=== PATIENT | female | born 1960 | race African-American/Black ===

== ENCOUNTER 2020-09-27 15:53 | Inpatient (IN) | payer OTHER ==
[2020-09-27] MEDS ORDERED: MAG HYDROX/AL HYDROX/SIMETH 30 ML UNIT-DOSE CUP PO PRN (16:51)
[2020-09-27] MEDS ORDERED: ACETAMINOPHEN 325 MG TABLET (FP) PO PRN ×2 (16:51)
[2020-09-27] MEDS ORDERED: MENTHOL/PHENOL 1 EACH UD MM PRN (16:51)
[2020-09-27] MEDS ORDERED: NICOTINE POLACRILEX 2 MG GUM BUC PRN (16:51)
[2020-09-27] MEDS ORDERED: MAGNESIUM CITRATE 300 ML BOTTLE PO PRN (16:51)
[2020-09-27] MEDS ORDERED: IBUPROFEN 400 MG TABLET (FP) PO PRN (16:51)
[2020-09-27] MEDS ORDERED: BISMUTH SUBSALICYLATE 524 MG/30 ML UD PO PRN (16:51)
[2020-09-27] MEDS ORDERED: chlordiazePOXIDE HCL 25 MG CAPSULE PO PRN (16:51)
[2020-09-27] MEDS ORDERED: ONDANSETRON *ODT* 4 MG TABLET SL PRN (16:51)
[2020-09-27] MEDS ORDERED: MAGNESIUM HYDROX 2400MG/30ML ORAL SUSPENSION 30 ML CUP PO PRN (16:51)
[2020-09-27 17:07] VITALS: BMI 21.3
[2020-09-27] MEDS ORDERED: ALBUTEROL SO4 HFA INHALER IH PRN (18:02)
[2020-09-27] MEDS: hydrOXYzine PAMOATE 25 MG CAPSULE (FP) PO SCH ×2 (18:42→22:32)
[2020-09-27] MEDS: NICOTINE 21 MG/24 HOURS TOPICAL PATCH TD SCH (19:04)
[2020-09-27] MEDS: chlordiazePOXIDE HCL 25 MG CAPSULE PO SCH (22:31)
[2020-09-27] MEDS: THIAMINE HCL 100 MG TABLET (FP) PO SCH (22:32)
[2020-09-27] MEDS: MELATONIN 5 MG TABLETS PO SCH (22:32)
[2020-09-28] MEDS: chlordiazePOXIDE HCL 25 MG CAPSULE PO SCH ×2 (06:15→10:23)
[2020-09-28] MEDS: hydrOXYzine PAMOATE 25 MG CAPSULE (FP) PO SCH ×5 (06:15→22:39)
[2020-09-28] MEDS: LISINOPRIL 20 MG TABLET PO SCH (10:22)
[2020-09-28] MEDS: PRENATAL VITAMINS W/ FOLIC ACID TABLET (FP) PO SCH (10:22)
[2020-09-28] MEDS: NICOTINE 21 MG/24 HOURS TOPICAL PATCH TD SCH (10:22)
[2020-09-28] MEDS: SELENIUM SULFIDE 2.5% LOTION 4 OZ. TP SCH (10:24)
[2020-09-28 10:57] LABS: CALCIUM 9.8 mg/dL (8.5-10.1)
[2020-09-28 10:58] LABS: ALBUMIN 3.2 g/dl (3.4-5.0); BLOOD UREA NITROGEN 4.9 mg/dL (7-18)
[2020-09-28 11:01] LABS: CREATININE 0.7 mg/dL (0.55-1.3)
[2020-09-28 11:02] LABS: TOT PROT 7.2 g/dl (6.4-8.2)
[2020-09-28 11:04] LABS: BILIRUBIN,TOTAL 3.1 mg/dL (0.2-1)
[2020-09-28 11:11] LABS: HEMATOCRIT 41.7 % (32.4-45.2); HEMOGLOBIN 14.4 GM/dL (10.7-15.3); MCH 34.7 pg (25.7-33.7); MCHC 34.6 g/dl (32.0-36.0); MEAN CELL VOLUME 100.5 fl (80-96); MEAN PLT VOLUME 8.8 fl (7.5-11.1); PLATELET COUNT 210 K/MM3 (134-434); RBC 4.15 M/mm3 (3.60-5.2); RDW 17.3 % (11.6-15.6); WHITE BLOOD COUNT 4.7 K/mm3 (4.0-10.0)
[2020-09-28] MEDS ORDERED: LORazepam 1 MG TABLET PO PRN (14:14)
[2020-09-28] MEDS: LORazepam 2 MG TABLET PO SCH ×2 (17:25→22:40)
[2020-09-28] MEDS: METHOCARBAMOL 500 MG TABLET PO PRN (19:16)
[2020-09-28] MEDS: MIRTAZAPINE 15 MG TABLET (FP) PO SCH (22:39)
[2020-09-28] MEDS: MELATONIN 5 MG TABLETS PO SCH (22:39)
[2020-09-28] MEDS: THIAMINE HCL 100 MG TABLET (FP) PO SCH (22:39)
[2020-09-29] MEDS ORDERED: chlordiazePOXIDE HCL 25 MG CAPSULE PO SCH (05:00)
[2020-09-29] MEDS: LORazepam 2 MG TABLET PO SCH ×4 (06:36→22:50)
[2020-09-29] MEDS: hydrOXYzine PAMOATE 25 MG CAPSULE (FP) PO SCH ×2 (06:37→10:32)
[2020-09-29] MEDS: NICOTINE 21 MG/24 HOURS TOPICAL PATCH TD SCH (10:32)
[2020-09-29] MEDS: LISINOPRIL 20 MG TABLET PO SCH (10:32)
[2020-09-29] MEDS: SELENIUM SULFIDE 2.5% LOTION 4 OZ. TP SCH (10:32)
[2020-09-29] MEDS: PRENATAL VITAMINS W/ FOLIC ACID TABLET (FP) PO SCH (10:32)
[2020-09-29] MEDS ORDERED: MASKS NR ONE (10:50)
[2020-09-29 11:33] LABS: CALCIUM 9.3 mg/dL (8.5-10.1)
[2020-09-29 11:34] LABS: ALBUMIN 2.8 g/dl (3.4-5.0); BLOOD UREA NITROGEN 8.1 mg/dL (7-18)
[2020-09-29 11:37] LABS: CREATININE 0.6 mg/dL (0.55-1.3)
[2020-09-29 11:38] LABS: BILIRUBIN,TOTAL 2.6 mg/dL (0.2-1); TOT PROT 6.4 g/dl (6.4-8.2)
[2020-09-29 11:45] LABS: INR 1.08 (0.83-1.09)
[2020-09-29] MEDS ORDERED: hydrOXYzine PAMOATE 25 MG CAPSULE (FP) PO PRN (13:41)
[2020-09-29] MEDS: LACTULOSE 20 GM/30 ML UDC (FOR ORAL USE ONLY) PO SCH ×3 (14:15→22:51)
[2020-09-29] MEDS: METHOCARBAMOL 500 MG TABLET PO PRN (14:17)
[2020-09-29] MEDS: MELATONIN 5 MG TABLETS PO SCH (22:51)
[2020-09-29] MEDS: MIRTAZAPINE 15 MG TABLET (FP) PO SCH (22:51)
[2020-09-29] MEDS: THIAMINE HCL 100 MG TABLET (FP) PO SCH (22:51)
[2020-09-30] MEDS ORDERED: chlordiazePOXIDE HCL 10 MG CAPSULE PO PRN
[2020-09-30] MEDS ORDERED: chlordiazePOXIDE HCL 10 MG CAPSULE PO SCH (05:00)
[2020-09-30] MEDS: LORazepam 1 MG TABLET PO SCH ×4 (06:08→22:36)
[2020-09-30] MEDS: PRENATAL VITAMINS W/ FOLIC ACID TABLET (FP) PO SCH (10:42)
[2020-09-30] MEDS: LACTULOSE 20 GM/30 ML UDC (FOR ORAL USE ONLY) PO SCH ×4 (10:42→22:38)
[2020-09-30] MEDS: LISINOPRIL 20 MG TABLET PO SCH (10:42)
[2020-09-30] MEDS: NICOTINE 21 MG/24 HOURS TOPICAL PATCH TD SCH (10:42)
[2020-09-30] MEDS: SELENIUM SULFIDE 2.5% LOTION 4 OZ. TP SCH (10:43)
[2020-09-30] MEDS: MIRTAZAPINE 15 MG TABLET (FP) PO SCH (22:36)
[2020-09-30] MEDS: THIAMINE HCL 100 MG TABLET (FP) PO SCH (22:36)
[2020-09-30] MEDS: MELATONIN 5 MG TABLETS PO SCH (22:40)
[2020-10-01] MEDS ORDERED: LORazepam 0.5 MG TABLET PO PRN
[2020-10-01] MEDS ORDERED: chlordiazePOXIDE HCL 10 MG CAPSULE PO SCH (05:00)
[2020-10-01] MEDS: LORazepam 0.5 MG TABLET PO SCH ×4 (06:54→23:37)
[2020-10-01] MEDS: LACTULOSE 20 GM/30 ML UDC (FOR ORAL USE ONLY) PO SCH ×4 (10:20→23:34)
[2020-10-01] MEDS: LISINOPRIL 20 MG TABLET PO SCH (10:21)
[2020-10-01] MEDS: PRENATAL VITAMINS W/ FOLIC ACID TABLET (FP) PO SCH (10:21)
[2020-10-01] MEDS: NICOTINE 21 MG/24 HOURS TOPICAL PATCH TD SCH (10:21)
[2020-10-01] MEDS: SELENIUM SULFIDE 2.5% LOTION 4 OZ. TP SCH (10:22)
[2020-10-01 12:45] LABS: CALCIUM 9.7 mg/dL (8.5-10.1)
[2020-10-01 12:47] LABS: ALBUMIN 3.2 g/dl (3.4-5.0)
[2020-10-01 12:49] LABS: CREATININE 0.7 mg/dL (0.55-1.3)
[2020-10-01 12:50] LABS: BILIRUBIN,TOTAL 2.5 mg/dL (0.2-1); TOT PROT 7.2 g/dl (6.4-8.2)
[2020-10-01 14:26] LABS: INR 0.98 (0.83-1.09); PROTHROMBIN TIME (PATIENT) 12.1 SEC (9.7-13.0)
[2020-10-01] MEDS: MELATONIN 5 MG TABLETS PO SCH (23:34)
[2020-10-01] MEDS: MIRTAZAPINE 15 MG TABLET (FP) PO SCH (23:35)
[2020-10-01] MEDS: THIAMINE HCL 100 MG TABLET (FP) PO SCH (23:36)
[2020-10-02] MEDS ORDERED: LORazepam 0.5 MG TABLET PO ONE (05:00)
[2020-10-02] MEDS ORDERED: chlordiazePOXIDE HCL 10 MG CAPSULE PO ONE (05:00)
[2020-10-02 09:22] VITALS: BP 121/85; PULSE 123; TEMP 97.5
[2020-10-02] MEDS: PRENATAL VITAMINS W/ FOLIC ACID TABLET (FP) PO SCH (09:38)
[2020-10-02] MEDS: LISINOPRIL 20 MG TABLET PO SCH (09:38)
[2020-10-02] MEDS: NICOTINE 21 MG/24 HOURS TOPICAL PATCH TD SCH (09:38)
[2020-10-02] MEDS: LACTULOSE 20 GM/30 ML UDC (FOR ORAL USE ONLY) PO SCH (09:39)
[2020-10-02] MEDS: SELENIUM SULFIDE 2.5% LOTION 4 OZ. TP SCH (09:40)
== END 2020-10-02 10:20 | disposition home or self-care (01) | DRG 775 ==
LOC: YASAS 15:53 → Y6N 17:41
PROVIDERS: ADMIT Allergy & Immunology; ATTEND Allergy & Immunology
PROC: HZ2ZZZZ Detoxification Services for Substance Abuse Treatment (ICD-10-PCS; principal; 2020-09-27)
DX: F10.230 Alcohol dependence with withdrawal, uncomplicated (principal); F10.220 Alcohol dependence with intoxication, uncomplicated; F17.210 Nicotine dependence, cigarettes, uncomplicated; F20.9 Schizophrenia, unspecified; G47.00 Insomnia, unspecified; J44.9 Chronic obstructive pulmonary disease, unspecified; J40 Bronchitis, not specified as acute or chronic; I10 Essential (primary) hypertension; L21.0 Seborrhea capitis; R29.6 Repeated falls; R63.4 Abnormal weight loss; Z68.21 Body mass index [BMI] 21.0-21.9, adult; Z91.5 Personal history of self-harm; Z91.14 Patient's other noncompliance with medication regimen; Z88.6 Allergy status to analgesic agent; S09.8XXA Other specified injuries of head, initial encounter; W18.11XA Fall from or off toilet without subsequent striking against object, initial encounter; Y92.231 Patient bathroom in hospital as the place of occurrence of the external cause; Y93.89 Activity, other specified; Y99.8 Other external cause status
CPT/HCPCS: 36415; 70450-TC; 71045-TC-FY; 72125-TC; 72170-TC-FY; 80053; 82140; 82550; 82962; 84484; 85025; 85027; 85610; 86780; 87389; 93005; 93010; 99285-25; C9803; U0003

== ENCOUNTER 2020-09-30 04:33 | Emergency (ER) | payer OTHER ==
[2020-09-30 04:42] VITALS: BMI 24.2
[2020-09-30] MEDS ORDERED: chlordiazePOXIDE HCL 25 MG CAPSULE PO ONE (05:05)
[2020-09-30] MEDS ORDERED: chlordiazePOXIDE HCL 25 MG CAPSULE ONE (05:22)
[2020-09-30 06:25] LABS: BASO % 1.4 % (0-2.0); EOS % 2.2 % (0-4.5); HEMATOCRIT 39.7 % (32.4-45.2); HEMOGLOBIN 13.5 GM/dL (10.7-15.3); LYMPH % 26.4 % (8-40); MCH 34.8 pg (25.7-33.7); MCHC 33.9 g/dl (32.0-36.0); MEAN CELL VOLUME 102.7 fl (80-96); MEAN PLT VOLUME 9.1 fl (7.5-11.1); MONO % 9.2 % (3.8-10.2); NEUT % 60.8 % (42.8-82.8); PLATELET COUNT 180 K/MM3 (134-434); RBC 3.87 M/mm3 (3.60-5.2); RDW 17.3 % (11.6-15.6); WHITE BLOOD COUNT 5.1 K/mm3 (4.0-10.0)
[2020-09-30 06:27] LABS: CHLORIDE 106 mmol/L (98-107); POTASSIUM 4.9 mmol/L (3.5-5.1); SODIUM 139 mmol/L (136-145)
[2020-09-30 06:29] LABS: CALCIUM 9.7 mg/dL (8.5-10.1)
[2020-09-30 06:30] LABS: ANION GAP 6 MMOL/L (8-16); BLOOD UREA NITROGEN 9.9 mg/dL (7-18); CO2 28 mmol/L (21-32); GLUCOSE,RANDOM 102 mg/dL (74-106)
[2020-09-30 06:33] LABS: CREATININE 0.7 mg/dL (0.55-1.3); SGOT/AST 164 U/L (15-37); SGPT/ALT 46 U/L (13-61)
[2020-09-30 06:34] LABS: BILIRUBIN,TOTAL 2.9 mg/dL (0.2-1)
[2020-09-30 06:36] LABS: ALK PHOS 257 U/L (45-117)
[2020-09-30 06:52] VITALS: TEMP 97.8
[2020-09-30] MEDS ORDERED: amLODIPine BESYLATE 10 MG TABLET (FP) PO ONE (07:12)
[2020-09-30] MEDS ORDERED: amLODIPine BESYLATE 5 MG TABLET (FP) ONE (07:24)
[2020-09-30 10:36] VITALS: BP 133/88; PULSE 88
== END 2020-09-30 10:50 | disposition home or self-care (01) ==
LOC: JER 04:33
DX: R51.9 Headache, unspecified (principal); M25.552 Pain in left hip
CPT/HCPCS: 36415; 70450-TC; 71045-TC-FY; 72125-TC; 72170-TC-FY; 80053; 82550; 84484; 85025; 93005; 93010; 99285-25

== ENCOUNTER 2020-10-01 20:15 | Emergency (ER) | payer OTHER ==
[2020-10-01] MEDS ORDERED: ACETAMINOPHEN 325 MG TABLET (FP) PO ONE (20:54)
[2020-10-01] MEDS ORDERED: ACETAMINOPHEN 325 MG TABLET (FP) ONE (21:01)
[2020-10-01 22:19] VITALS: PULSE 95; BMI 27.4
[2020-10-02 00:30] VITALS: BP 135/107; TEMP 97.9
[2020-10-02] MEDS ORDERED: ACETAMINOPHEN 325 MG TABLET (FP) PO ONE (01:07)
[2020-10-02] MEDS ORDERED: ACETAMINOPHEN 325 MG TABLET (FP) ONE (01:37)
== END 2020-10-02 02:35 | disposition home or self-care (01) ==
LOC: JER 20:15
DX: S09.90XA Unspecified injury of head, initial encounter (principal)
CPT/HCPCS: 70450-TC; 72170-TC-FY; 82962; 99285-25

== ENCOUNTER 2020-10-21 11:27 | Inpatient (IN) | payer OTHER ==
[2020-10-21 12:21] VITALS: BMI 22.8
[2020-10-21] MEDS ORDERED: NICOTINE POLACRILEX 2 MG GUM BUC PRN (12:40)
[2020-10-21] MEDS ORDERED: ONDANSETRON *ODT* 4 MG TABLET SL PRN (12:40)
[2020-10-21] MEDS ORDERED: BISMUTH SUBSALICYLATE 524 MG/30 ML UD PO PRN (12:40)
[2020-10-21] MEDS ORDERED: MAGNESIUM HYDROX 2400MG/30ML ORAL SUSPENSION 30 ML CUP PO PRN (12:40)
[2020-10-21] MEDS ORDERED: MENTHOL/PHENOL 1 EACH UD MM PRN (12:40)
[2020-10-21] MEDS ORDERED: MAG HYDROX/AL HYDROX/SIMETH 30 ML UNIT-DOSE CUP PO PRN (12:40)
[2020-10-21] MEDS ORDERED: MAGNESIUM CITRATE 300 ML BOTTLE PO PRN (12:40)
[2020-10-21] MEDS ORDERED: chlordiazePOXIDE HCL 25 MG CAPSULE PO PRN (12:40)
[2020-10-21] MEDS ORDERED: ACETAMINOPHEN 325 MG TABLET (FP) PO PRN ×2 (12:40)
[2020-10-21] MEDS ORDERED: ALBUTEROL SO4 HFA INHALER IH PRN (12:46)
[2020-10-21] MEDS: NICOTINE 21 MG/24 HOURS TOPICAL PATCH TD SCH (13:44)
[2020-10-21] MEDS: PRENATAL VITAMINS W/ FOLIC ACID TABLET (FP) PO SCH (13:44)
[2020-10-21] MEDS: chlordiazePOXIDE HCL 25 MG CAPSULE PO SCH ×3 (13:44→22:26)
[2020-10-21] MEDS: hydrOXYzine PAMOATE 25 MG CAPSULE (FP) PO SCH ×3 (13:44→22:26)
[2020-10-21 17:26] LABS: POTASSIUM 4.2 mmol/L (3.5-5.1)
[2020-10-21 17:27] LABS: HEMATOCRIT 37.1 % (32.4-45.2); HEMOGLOBIN 12.4 GM/dL (10.7-15.3); MCH 34.6 pg (25.7-33.7); MCHC 33.4 g/dl (32.0-36.0); MEAN CELL VOLUME 103.4 fl (80-96); MEAN PLT VOLUME 8.6 fl (7.5-11.1); PLATELET COUNT 278 K/MM3 (134-434); RBC 3.59 M/mm3 (3.60-5.2); RDW 16.6 % (11.6-15.6); WHITE BLOOD COUNT 5.5 K/mm3 (4.0-10.0)
[2020-10-21 17:31] LABS: CALCIUM 9.6 mg/dL (8.5-10.1)
[2020-10-21 17:32] LABS: ALBUMIN 3.3 g/dl (3.4-5.0); BLOOD UREA NITROGEN 5.9 mg/dL (7-18)
[2020-10-21 17:35] LABS: CREATININE 0.6 mg/dL (0.55-1.3)
[2020-10-21 17:38] LABS: BILIRUBIN,TOTAL 0.6 mg/dL (0.2-1); TOT PROT 7.1 g/dl (6.4-8.2)
[2020-10-21] MEDS: THIAMINE HCL 100 MG TABLET (FP) PO SCH (22:26)
[2020-10-21] MEDS: MIRTAZAPINE 15 MG TABLET (FP) PO SCH (22:26)
[2020-10-21] MEDS: MELATONIN 5 MG TABLETS PO SCH (22:31)
[2020-10-22] MEDS: chlordiazePOXIDE HCL 25 MG CAPSULE PO SCH ×4 (05:58→22:30)
[2020-10-22] MEDS: hydrOXYzine PAMOATE 25 MG CAPSULE (FP) PO SCH ×5 (05:58→22:29)
[2020-10-22] MEDS: LISINOPRIL 20 MG TABLET PO SCH (10:39)
[2020-10-22] MEDS: NICOTINE 21 MG/24 HOURS TOPICAL PATCH TD SCH (10:39)
[2020-10-22] MEDS: PRENATAL VITAMINS W/ FOLIC ACID TABLET (FP) PO SCH (10:39)
[2020-10-22] MEDS: METHOCARBAMOL 500 MG TABLET PO PRN (11:36)
[2020-10-22] MEDS: IBUPROFEN 400 MG TABLET (FP) PO PRN (11:37)
[2020-10-22] MEDS: MIRTAZAPINE 15 MG TABLET (FP) PO SCH (22:29)
[2020-10-22] MEDS: THIAMINE HCL 100 MG TABLET (FP) PO SCH (22:29)
[2020-10-22] MEDS: MELATONIN 5 MG TABLETS PO SCH (22:30)
[2020-10-23] MEDS: hydrOXYzine PAMOATE 25 MG CAPSULE (FP) PO SCH ×5 (05:47→22:35)
[2020-10-23] MEDS: chlordiazePOXIDE HCL 25 MG CAPSULE PO SCH ×4 (05:47→22:35)
[2020-10-23] MEDS: METHOCARBAMOL 500 MG TABLET PO PRN (09:16)
[2020-10-23] MEDS: IBUPROFEN 400 MG TABLET (FP) PO PRN (09:17)
[2020-10-23] MEDS: PRENATAL VITAMINS W/ FOLIC ACID TABLET (FP) PO SCH (10:34)
[2020-10-23] MEDS: LISINOPRIL 20 MG TABLET PO SCH (10:34)
[2020-10-23] MEDS: NICOTINE 21 MG/24 HOURS TOPICAL PATCH TD SCH (10:35)
[2020-10-23 11:53] LABS: INR 0.97 (0.83-1.09); PROTHROMBIN TIME (PATIENT) 11.9 SEC (9.7-13.0)
[2020-10-23 11:55] LABS: POTASSIUM 4.5 mmol/L (3.5-5.1)
[2020-10-23 12:26] LABS: CALCIUM 9.6 mg/dL (8.5-10.1)
[2020-10-23 12:27] LABS: ALBUMIN 2.9 g/dl (3.4-5.0)
[2020-10-23 12:31] LABS: BILIRUBIN,TOTAL 1.1 mg/dL (0.2-1); CREATININE 0.5 mg/dL (0.55-1.3)
[2020-10-23 12:32] LABS: TOT PROT 6.2 g/dl (6.4-8.2)
[2020-10-23] MEDS: MIRTAZAPINE 15 MG TABLET (FP) PO SCH (22:34)
[2020-10-23] MEDS: THIAMINE HCL 100 MG TABLET (FP) PO SCH (22:34)
[2020-10-23] MEDS: MELATONIN 5 MG TABLETS PO SCH (23:35)
[2020-10-24] MEDS ORDERED: chlordiazePOXIDE HCL 10 MG CAPSULE PO PRN
[2020-10-24] MEDS: hydrOXYzine PAMOATE 25 MG CAPSULE (FP) PO SCH ×5 (06:50→22:48)
[2020-10-24] MEDS: chlordiazePOXIDE HCL 10 MG CAPSULE PO SCH ×4 (06:50→22:48)
[2020-10-24] MEDS: PRENATAL VITAMINS W/ FOLIC ACID TABLET (FP) PO SCH (10:05)
[2020-10-24] MEDS: NICOTINE 21 MG/24 HOURS TOPICAL PATCH TD SCH (10:05)
[2020-10-24] MEDS: LISINOPRIL 20 MG TABLET PO SCH (10:06)
[2020-10-24] MEDS ORDERED: LIDOCAINE VISCOUS 2% ORAL/TOP 20 ML UNIT-DOSE CUP MM PRN (13:25)
[2020-10-24] MEDS: THIAMINE HCL 100 MG TABLET (FP) PO SCH (22:48)
[2020-10-24] MEDS: MIRTAZAPINE 15 MG TABLET (FP) PO SCH (22:48)
[2020-10-24] MEDS: MELATONIN 5 MG TABLETS PO SCH (22:49)
[2020-10-25] MEDS: chlordiazePOXIDE HCL 10 MG CAPSULE PO SCH ×2 (06:51→17:59)
[2020-10-25] MEDS: hydrOXYzine PAMOATE 25 MG CAPSULE (FP) PO SCH ×5 (06:52→21:45)
[2020-10-25] MEDS: NICOTINE 21 MG/24 HOURS TOPICAL PATCH TD SCH (10:20)
[2020-10-25] MEDS: LISINOPRIL 20 MG TABLET PO SCH (10:21)
[2020-10-25] MEDS: PRENATAL VITAMINS W/ FOLIC ACID TABLET (FP) PO SCH (10:21)
[2020-10-25] MEDS: THIAMINE HCL 100 MG TABLET (FP) PO SCH (21:44)
[2020-10-25] MEDS: MELATONIN 5 MG TABLETS PO SCH (21:45)
[2020-10-25] MEDS: MIRTAZAPINE 15 MG TABLET (FP) PO SCH (21:45)
[2020-10-26] MEDS ORDERED: chlordiazePOXIDE HCL 10 MG CAPSULE PO ONE (05:00)
[2020-10-26] MEDS: hydrOXYzine PAMOATE 25 MG CAPSULE (FP) PO SCH ×2 (06:37→10:19)
[2020-10-26] MEDS: NICOTINE 21 MG/24 HOURS TOPICAL PATCH TD SCH (10:18)
[2020-10-26] MEDS: LISINOPRIL 20 MG TABLET PO SCH (10:19)
[2020-10-26] MEDS: PRENATAL VITAMINS W/ FOLIC ACID TABLET (FP) PO SCH (10:19)
[2020-10-26 11:45] VITALS: BP 134/98; PULSE 115; TEMP 97.3
== END 2020-10-26 12:12 | disposition other institution (70) | DRG 775 ==
LOC: YASAS 11:27 → Y6N 12:38
PROVIDERS: ADMIT Allergy & Immunology; ATTEND Allergy & Immunology
PROC: HZ2ZZZZ Detoxification Services for Substance Abuse Treatment (ICD-10-PCS; principal; 2020-10-21)
DX: F10.230 Alcohol dependence with withdrawal, uncomplicated (principal); F17.210 Nicotine dependence, cigarettes, uncomplicated; F10.220 Alcohol dependence with intoxication, uncomplicated; F10.282 Alcohol dependence with alcohol-induced sleep disorder; F20.9 Schizophrenia, unspecified; F41.9 Anxiety disorder, unspecified; I10 Essential (primary) hypertension; J43.9 Emphysema, unspecified; J40 Bronchitis, not specified as acute or chronic; G47.00 Insomnia, unspecified; R74.01 Elevation of levels of liver transaminase levels; R74.8 Abnormal levels of other serum enzymes; R29.6 Repeated falls; R63.4 Abnormal weight loss; Z68.22 Body mass index [BMI] 22.0-22.9, adult; Z87.828 Personal history of other (healed) physical injury and trauma; Z88.6 Allergy status to analgesic agent; Z91.018 Allergy to other foods; Z56.0 Unemployment, unspecified
CPT/HCPCS: 36415; 80053; 81025; 82947; 85027; 85610; 86780; C9803; U0003

== ENCOUNTER 2020-10-26 11:39 | Inpatient (IN) | payer OTHER ==
[2020-10-26] MEDS ORDERED: MAG HYDROX/AL HYDROX/SIMETH 30 ML UNIT-DOSE CUP PO PRN (13:50)
[2020-10-26] MEDS ORDERED: P-EPHED 60MG/TRIPROLIDI 2.5MG TABLET PO PRN (13:50)
[2020-10-26] MEDS ORDERED: LOPERAMIDE HCL 2 MG CAPSULE PO PRN (13:50)
[2020-10-26] MEDS ORDERED: MENTHOL/PHENOL 1 EACH UD MM PRN (13:50)
[2020-10-26] MEDS ORDERED: MAGNESIUM HYDROX 2400MG/30ML ORAL SUSPENSION 30 ML CUP PO PRN (13:50)
[2020-10-26] MEDS ORDERED: ACETAMINOPHEN 325 MG TABLET (FP) PO PRN (13:50)
[2020-10-26] MEDS ORDERED: MAGNESIUM CITRATE 300 ML BOTTLE PO PRN (13:50)
[2020-10-26] MEDS ORDERED: guaiFENesin 200 MG/10 ML 10 ML UNIT-DOSE CUPS PO PRN (13:50)
[2020-10-26] MEDS ORDERED: NICOTINE POLACRILEX 2 MG GUM BUC PRN (13:50)
[2020-10-26] MEDS ORDERED: LIDOCAINE VISCOUS 2% ORAL/TOP 20 ML UNIT-DOSE CUP MM PRN (13:54)
[2020-10-26] MEDS: METHOCARBAMOL 500 MG TABLET PO SCH ×3 (14:57→21:14)
[2020-10-26] MEDS: hydrOXYzine PAMOATE 25 MG CAPSULE (FP) PO PRN (15:57)
[2020-10-26] MEDS: THIAMINE HCL 100 MG TABLET (FP) PO SCH (21:14)
[2020-10-26] MEDS: MIRTAZAPINE 15 MG TABLET (FP) PO SCH (21:14)
[2020-10-26] MEDS: MELATONIN 5 MG TABLETS PO SCH (21:14)
[2020-10-26] MEDS ORDERED: MIRTAZAPINE 15 MG TABLET (FP) PO SCH (22:00)
[2020-10-27] MEDS: hydrOXYzine PAMOATE 25 MG CAPSULE (FP) PO PRN (10:04)
[2020-10-27] MEDS: PRENATAL VITAMINS W/ FOLIC ACID TABLET (FP) PO SCH (10:04)
[2020-10-27] MEDS: METHOCARBAMOL 500 MG TABLET PO SCH ×4 (10:04→21:32)
[2020-10-27] MEDS: LISINOPRIL 20 MG TABLET PO SCH (10:04)
[2020-10-27] MEDS: NICOTINE 21 MG/24 HOURS TOPICAL PATCH TD SCH (10:05)
[2020-10-27] MEDS ORDERED: PT OWN MED DRAWER 7, Y5N ONE (10:07)
[2020-10-27] MEDS: MELATONIN 5 MG TABLETS PO SCH (21:32)
[2020-10-27] MEDS: MIRTAZAPINE 15 MG TABLET (FP) PO SCH (21:32)
[2020-10-27] MEDS: THIAMINE HCL 100 MG TABLET (FP) PO SCH (21:32)
[2020-10-28] MEDS: LISINOPRIL 20 MG TABLET PO SCH (09:44)
[2020-10-28] MEDS: PRENATAL VITAMINS W/ FOLIC ACID TABLET (FP) PO SCH (09:44)
[2020-10-28] MEDS: METHOCARBAMOL 500 MG TABLET PO SCH ×4 (09:44→21:10)
[2020-10-28] MEDS: NICOTINE 21 MG/24 HOURS TOPICAL PATCH TD SCH (09:44)
[2020-10-28] MEDS: THIAMINE HCL 100 MG TABLET (FP) PO SCH (21:10)
[2020-10-28] MEDS: MELATONIN 5 MG TABLETS PO SCH (21:10)
[2020-10-28] MEDS: MIRTAZAPINE 15 MG TABLET (FP) PO SCH (21:10)
[2020-10-29] MEDS ORDERED: PT OWN MED DRAWER 7, Y5N ONE (08:59)
[2020-10-29] MEDS: METHOCARBAMOL 500 MG TABLET PO SCH ×4 (09:48→21:10)
[2020-10-29] MEDS: NICOTINE 21 MG/24 HOURS TOPICAL PATCH TD SCH (09:48)
[2020-10-29] MEDS: LISINOPRIL 20 MG TABLET PO SCH (09:48)
[2020-10-29] MEDS: PRENATAL VITAMINS W/ FOLIC ACID TABLET (FP) PO SCH (09:49)
[2020-10-29] MEDS ORDERED: COLLOIDAL OATMEAL 1 BAR EACH TP PRN (12:48)
[2020-10-29] MEDS: hydrOXYzine PAMOATE 25 MG CAPSULE (FP) PO PRN ×2 (18:21→21:10)
[2020-10-29] MEDS: THIAMINE HCL 100 MG TABLET (FP) PO SCH (21:10)
[2020-10-29] MEDS: MELATONIN 5 MG TABLETS PO SCH (21:10)
[2020-10-29] MEDS: MIRTAZAPINE 15 MG TABLET (FP) PO SCH (21:10)
[2020-10-30] MEDS: METHOCARBAMOL 500 MG TABLET PO SCH ×4 (09:51→21:04)
[2020-10-30] MEDS: PRENATAL VITAMINS W/ FOLIC ACID TABLET (FP) PO SCH (09:51)
[2020-10-30] MEDS: NICOTINE 21 MG/24 HOURS TOPICAL PATCH TD SCH (09:52)
[2020-10-30] MEDS: LISINOPRIL 20 MG TABLET PO SCH (09:52)
[2020-10-30] MEDS: MELATONIN 5 MG TABLETS PO SCH (21:04)
[2020-10-30] MEDS: MIRTAZAPINE 15 MG TABLET (FP) PO SCH (21:04)
[2020-10-30] MEDS: THIAMINE HCL 100 MG TABLET (FP) PO SCH (21:04)
[2020-10-31] MEDS ORDERED: PT OWN MED DRAWER 7, Y5N ONE (08:39)
[2020-10-31] MEDS: LISINOPRIL 20 MG TABLET PO SCH (09:53)
[2020-10-31] MEDS: METHOCARBAMOL 500 MG TABLET PO SCH ×4 (09:53→21:12)
[2020-10-31] MEDS: NICOTINE 21 MG/24 HOURS TOPICAL PATCH TD SCH (09:54)
[2020-10-31] MEDS: PRENATAL VITAMINS W/ FOLIC ACID TABLET (FP) PO SCH (09:54)
[2020-10-31] MEDS: THIAMINE HCL 100 MG TABLET (FP) PO SCH (21:11)
[2020-10-31] MEDS: MELATONIN 5 MG TABLETS PO SCH (21:11)
[2020-10-31] MEDS: hydrOXYzine PAMOATE 25 MG CAPSULE (FP) PO PRN (21:11)
[2020-10-31] MEDS: MIRTAZAPINE 15 MG TABLET (FP) PO SCH (21:11)
[2020-11-01] MEDS: LISINOPRIL 20 MG TABLET PO SCH (09:58)
[2020-11-01] MEDS: METHOCARBAMOL 500 MG TABLET PO SCH ×4 (09:58→21:06)
[2020-11-01] MEDS: NICOTINE 21 MG/24 HOURS TOPICAL PATCH TD SCH (09:58)
[2020-11-01] MEDS: PRENATAL VITAMINS W/ FOLIC ACID TABLET (FP) PO SCH (09:59)
[2020-11-01] MEDS: MELATONIN 5 MG TABLETS PO SCH (21:05)
[2020-11-01] MEDS: THIAMINE HCL 100 MG TABLET (FP) PO SCH (21:05)
[2020-11-01] MEDS: MIRTAZAPINE 15 MG TABLET (FP) PO SCH (21:05)
[2020-11-01] MEDS: hydrOXYzine PAMOATE 25 MG CAPSULE (FP) PO PRN (21:05)
[2020-11-02] MEDS ORDERED: PT OWN MED DRAWER 7, Y5N ONE ×2 (08:51→13:25)
[2020-11-02] MEDS: LISINOPRIL 20 MG TABLET PO SCH (09:41)
[2020-11-02] MEDS: NICOTINE 21 MG/24 HOURS TOPICAL PATCH TD SCH (09:42)
[2020-11-02] MEDS: PRENATAL VITAMINS W/ FOLIC ACID TABLET (FP) PO SCH (09:42)
[2020-11-02] MEDS: METHOCARBAMOL 500 MG TABLET PO SCH ×4 (09:42→21:06)
[2020-11-02] MEDS: MIRTAZAPINE 15 MG TABLET (FP) PO SCH (21:06)
[2020-11-02] MEDS: MELATONIN 5 MG TABLETS PO SCH (21:06)
[2020-11-02] MEDS: hydrOXYzine PAMOATE 25 MG CAPSULE (FP) PO PRN (21:06)
[2020-11-02] MEDS: THIAMINE HCL 100 MG TABLET (FP) PO SCH (21:06)
[2020-11-03] MEDS: LISINOPRIL 20 MG TABLET PO SCH (07:20)
[2020-11-03] MEDS ORDERED: PT OWN MED DRAWER 7, Y5N ONE ×2 (09:14→10:03)
[2020-11-03] MEDS: PRENATAL VITAMINS W/ FOLIC ACID TABLET (FP) PO SCH (09:52)
[2020-11-03] MEDS: METHOCARBAMOL 500 MG TABLET PO SCH ×4 (09:52→21:04)
[2020-11-03] MEDS: NICOTINE 21 MG/24 HOURS TOPICAL PATCH TD SCH (09:52)
[2020-11-03] MEDS: IBUPROFEN 400 MG TABLET (FP) PO PRN ×2 (10:06→18:05)
[2020-11-03] MEDS: THIAMINE HCL 100 MG TABLET (FP) PO SCH (21:04)
[2020-11-03] MEDS: MIRTAZAPINE 15 MG TABLET (FP) PO SCH (21:04)
[2020-11-03] MEDS: MELATONIN 5 MG TABLETS PO SCH (21:04)
[2020-11-04] MEDS: LISINOPRIL 20 MG TABLET PO SCH (06:27)
[2020-11-04] MEDS: PRENATAL VITAMINS W/ FOLIC ACID TABLET (FP) PO SCH (09:38)
[2020-11-04] MEDS: METHOCARBAMOL 500 MG TABLET PO SCH ×4 (09:38→21:10)
[2020-11-04] MEDS: NICOTINE 21 MG/24 HOURS TOPICAL PATCH TD SCH (09:38)
[2020-11-04] MEDS: THIAMINE HCL 100 MG TABLET (FP) PO SCH (21:10)
[2020-11-04] MEDS: MELATONIN 5 MG TABLETS PO SCH (21:10)
[2020-11-04] MEDS: MIRTAZAPINE 15 MG TABLET (FP) PO SCH (21:10)
[2020-11-05] MEDS: LISINOPRIL 20 MG TABLET PO SCH (06:37)
[2020-11-05] MEDS: PRENATAL VITAMINS W/ FOLIC ACID TABLET (FP) PO SCH (09:47)
[2020-11-05] MEDS: NICOTINE 21 MG/24 HOURS TOPICAL PATCH TD SCH (09:47)
[2020-11-05] MEDS: METHOCARBAMOL 500 MG TABLET PO SCH ×4 (09:47→21:17)
[2020-11-05] MEDS: THIAMINE HCL 100 MG TABLET (FP) PO SCH (21:17)
[2020-11-05] MEDS: MELATONIN 5 MG TABLETS PO SCH (21:17)
[2020-11-05] MEDS: MIRTAZAPINE 15 MG TABLET (FP) PO SCH (21:17)
[2020-11-06] MEDS: LISINOPRIL 20 MG TABLET PO SCH (06:21)
[2020-11-06] MEDS: METHOCARBAMOL 500 MG TABLET PO SCH ×4 (09:49→21:20)
[2020-11-06] MEDS: PRENATAL VITAMINS W/ FOLIC ACID TABLET (FP) PO SCH (09:50)
[2020-11-06] MEDS: NICOTINE 21 MG/24 HOURS TOPICAL PATCH TD SCH (09:50)
[2020-11-06] MEDS ORDERED: PT OWN MED DRAWER 7, Y5N ONE (09:50)
[2020-11-06] MEDS: MIRTAZAPINE 15 MG TABLET (FP) PO SCH (21:19)
[2020-11-06] MEDS: hydrOXYzine PAMOATE 25 MG CAPSULE (FP) PO PRN (21:20)
[2020-11-06] MEDS: MELATONIN 5 MG TABLETS PO SCH (21:20)
[2020-11-06] MEDS: THIAMINE HCL 100 MG TABLET (FP) PO SCH (21:20)
[2020-11-07] MEDS: LISINOPRIL 20 MG TABLET PO SCH (06:24)
[2020-11-07 07:05] VITALS: TEMP 97.5
[2020-11-07] MEDS: PRENATAL VITAMINS W/ FOLIC ACID TABLET (FP) PO SCH (10:41)
[2020-11-07] MEDS: METHOCARBAMOL 500 MG TABLET PO SCH ×4 (10:42→22:15)
[2020-11-07] MEDS: hydrOXYzine PAMOATE 25 MG CAPSULE (FP) PO PRN ×2 (10:42→13:56)
[2020-11-07] MEDS: NICOTINE 21 MG/24 HOURS TOPICAL PATCH TD SCH (10:42)
[2020-11-07] MEDS: THIAMINE HCL 100 MG TABLET (FP) PO SCH (22:15)
[2020-11-07] MEDS: MIRTAZAPINE 15 MG TABLET (FP) PO SCH (22:15)
[2020-11-07] MEDS: MELATONIN 5 MG TABLETS PO SCH (22:15)
[2020-11-07] MEDS: ALBUTEROL SO4 HFA INHALER IH PRN (22:54)
[2020-11-08 06:52] VITALS: PULSE 91
[2020-11-08] MEDS: LISINOPRIL 20 MG TABLET PO SCH (06:52)
[2020-11-08] MEDS: METHOCARBAMOL 500 MG TABLET PO SCH ×4 (10:47→21:18)
[2020-11-08] MEDS: ALBUTEROL SO4 HFA INHALER IH PRN ×2 (10:47→21:21)
[2020-11-08] MEDS: hydrOXYzine PAMOATE 25 MG CAPSULE (FP) PO PRN ×2 (10:47→21:18)
[2020-11-08] MEDS: PRENATAL VITAMINS W/ FOLIC ACID TABLET (FP) PO SCH (10:47)
[2020-11-08] MEDS: NICOTINE 21 MG/24 HOURS TOPICAL PATCH TD SCH (10:47)
[2020-11-08] MEDS ORDERED: MASKS NR ONE (11:36)
[2020-11-08] MEDS: MELATONIN 5 MG TABLETS PO SCH (21:18)
[2020-11-08] MEDS: MIRTAZAPINE 15 MG TABLET (FP) PO SCH (21:18)
[2020-11-08] MEDS: THIAMINE HCL 100 MG TABLET (FP) PO SCH (21:21)
[2020-11-09] MEDS: LISINOPRIL 20 MG TABLET PO SCH (06:46)
[2020-11-09] MEDS: ALBUTEROL SO4 HFA INHALER IH PRN (06:46)
[2020-11-09 08:31] VITALS: BP 138/85
[2020-11-09] MEDS: PRENATAL VITAMINS W/ FOLIC ACID TABLET (FP) PO SCH (10:05)
[2020-11-09] MEDS: METHOCARBAMOL 500 MG TABLET PO SCH (10:06)
[2020-11-09] MEDS: NICOTINE 21 MG/24 HOURS TOPICAL PATCH TD SCH (10:07)
== END 2020-11-09 10:25 | disposition home or self-care (01) | DRG 772 ==
LOC: YASAS 11:39 → Y3E 11:40 → Y5N 11-06 16:39
PROVIDERS: ADMIT Allergy & Immunology; ATTEND Allergy & Immunology
PROC: HZ42ZZZ Group Counseling for Substance Abuse Treatment, Cognitive-Behavioral (ICD-10-PCS; principal; 2020-10-26)
DX: F10.20 Alcohol dependence, uncomplicated (principal); F17.210 Nicotine dependence, cigarettes, uncomplicated; I10 Essential (primary) hypertension; J43.9 Emphysema, unspecified; Z88.6 Allergy status to analgesic agent; Z91.018 Allergy to other foods
CPT/HCPCS: C9803; U0003

== ENCOUNTER 2020-12-14 17:52 | Inpatient (IN) | payer OTHER ==
[2020-12-14 19:04] VITALS: BMI 23.3
[2020-12-14] MEDS ORDERED: MAGNESIUM CITRATE 300 ML BOTTLE PO PRN (19:58)
[2020-12-14] MEDS ORDERED: METHOCARBAMOL 500 MG TABLET PO PRN (19:58)
[2020-12-14] MEDS ORDERED: NICOTINE POLACRILEX 2 MG GUM BUC PRN (19:58)
[2020-12-14] MEDS ORDERED: MENTHOL/PHENOL 1 EACH UD MM PRN (19:58)
[2020-12-14] MEDS ORDERED: MAGNESIUM HYDROX 2400MG/30ML ORAL SUSPENSION 30 ML CUP PO PRN (19:58)
[2020-12-14] MEDS ORDERED: ONDANSETRON *ODT* 4 MG TABLET SL PRN (19:58)
[2020-12-14] MEDS ORDERED: ACETAMINOPHEN 325 MG TABLET (FP) PO PRN ×2 (19:58)
[2020-12-14] MEDS ORDERED: MAG HYDROX/AL HYDROX/SIMETH 30 ML UNIT-DOSE CUP PO PRN (19:58)
[2020-12-14] MEDS ORDERED: ALBUTEROL SO4 HFA INHALER IH PRN (19:59)
[2020-12-14] MEDS ORDERED: chlordiazePOXIDE HCL 25 MG CAPSULE PO PRN (20:00)
[2020-12-14] MEDS: MELATONIN 5 MG TABLETS PO SCH (22:50)
[2020-12-14] MEDS: chlordiazePOXIDE HCL 25 MG CAPSULE PO SCH (22:50)
[2020-12-14] MEDS: THIAMINE HCL 100 MG TABLET (FP) PO SCH (22:50)
[2020-12-15] MEDS: chlordiazePOXIDE HCL 25 MG CAPSULE PO SCH ×4 (07:12→22:30)
[2020-12-15] MEDS: LISINOPRIL 20 MG TABLET PO SCH (09:16)
[2020-12-15] MEDS ORDERED: LOPERAMIDE HCL 2 MG CAPSULE PO ONE (10:00)
[2020-12-15] MEDS: PRENATAL VITAMINS W/ FOLIC ACID TABLET (FP) PO SCH (10:26)
[2020-12-15 11:09] LABS: HEMATOCRIT 41.7 % (32.4-45.2); HEMOGLOBIN 14.2 GM/dL (10.7-15.3); MEAN PLT VOLUME 8.7 fl (7.5-11.1); PLATELET COUNT 187 K/MM3 (134-434); RDW 15.5 % (11.6-15.6); WHITE BLOOD COUNT 4.5 K/mm3 (4.0-10.0)
[2020-12-15 11:14] LABS: ALBUMIN 3.7 g/dl (3.4-5.0); BLOOD UREA NITROGEN 8.5 mg/dL (7-18); CALCIUM 10.2 mg/dL (8.5-10.1)
[2020-12-15 11:17] LABS: CREATININE 0.7 mg/dL (0.55-1.3)
[2020-12-15 11:19] LABS: BILIRUBIN,TOTAL 0.8 mg/dL (0.2-1); TOT PROT 7.4 g/dl (6.4-8.2)
[2020-12-15] MEDS ORDERED: POTASSIUM CHLORIDE ORAL LIQUID 20 MEQ/15 ML PO ONE (20:01)
[2020-12-15] MEDS: MIRTAZAPINE 15 MG TABLET (FP) PO SCH (22:31)
[2020-12-15] MEDS: THIAMINE HCL 100 MG TABLET (FP) PO SCH (22:31)
[2020-12-15] MEDS: MELATONIN 5 MG TABLETS PO SCH (22:32)
[2020-12-16] MEDS: chlordiazePOXIDE HCL 25 MG CAPSULE PO SCH ×2 (06:01→10:19)
[2020-12-16] MEDS: PRENATAL VITAMINS W/ FOLIC ACID TABLET (FP) PO SCH (10:20)
[2020-12-16] MEDS: LISINOPRIL 20 MG TABLET PO SCH (10:20)
[2020-12-16] MEDS ORDERED: LORazepam 1 MG TABLET PO PRN (14:19)
[2020-12-16] MEDS ORDERED: POTASSIUM CHLORIDE ORAL LIQUID 20 MEQ/15 ML PO ONE (14:26)
[2020-12-16] MEDS: amLODIPine BESYLATE 5 MG TABLET (FP) PO SCH (14:54)
[2020-12-16] MEDS: LORazepam 2 MG TABLET PO SCH ×2 (18:04→22:21)
[2020-12-16] MEDS: THIAMINE HCL 100 MG TABLET (FP) PO SCH (22:21)
[2020-12-16] MEDS: MIRTAZAPINE 15 MG TABLET (FP) PO SCH (22:22)
[2020-12-16] MEDS: MELATONIN 5 MG TABLETS PO SCH (22:22)
[2020-12-17] MEDS ORDERED: chlordiazePOXIDE HCL 10 MG CAPSULE PO PRN
[2020-12-17] MEDS ORDERED: chlordiazePOXIDE HCL 10 MG CAPSULE PO SCH (05:00)
[2020-12-17] MEDS: LORazepam 1 MG TABLET PO SCH ×4 (06:22→22:23)
[2020-12-17 08:07] LABS: SARS-CoV-2 NAA Not Detected (Not Detected)
[2020-12-17] MEDS: amLODIPine BESYLATE 5 MG TABLET (FP) PO SCH (10:41)
[2020-12-17] MEDS: PRENATAL VITAMINS W/ FOLIC ACID TABLET (FP) PO SCH (10:41)
[2020-12-17] MEDS: LISINOPRIL 20 MG TABLET PO SCH (10:41)
[2020-12-17 11:11] LABS: ALBUMIN 3.1 g/dl (3.4-5.0)
[2020-12-17 11:13] LABS: BLOOD UREA NITROGEN 13.4 mg/dL (7-18); CALCIUM 9.8 mg/dL (8.5-10.1)
[2020-12-17 11:15] LABS: CREATININE 0.7 mg/dL (0.55-1.3)
[2020-12-17 11:17] LABS: BILIRUBIN,TOTAL 1.8 mg/dL (0.2-1); TOT PROT 6.3 g/dl (6.4-8.2)
[2020-12-17] MEDS ORDERED: cloNIDine HCL 0.1 MG TABLET PO ONE (13:46)
[2020-12-17] MEDS: THIAMINE HCL 100 MG TABLET (FP) PO SCH (22:22)
[2020-12-17] MEDS: MIRTAZAPINE 15 MG TABLET (FP) PO SCH (22:22)
[2020-12-17] MEDS: MELATONIN 5 MG TABLETS PO SCH (22:24)
[2020-12-18] MEDS ORDERED: LORazepam 0.5 MG TABLET PO PRN
[2020-12-18] MEDS: LORazepam 0.5 MG TABLET PO SCH ×2 (04:44→10:28)
[2020-12-18] MEDS ORDERED: chlordiazePOXIDE HCL 10 MG CAPSULE PO SCH (05:00)
[2020-12-18 09:44] VITALS: BP 143/79; PULSE 83; TEMP 96.9
[2020-12-18] MEDS: PRENATAL VITAMINS W/ FOLIC ACID TABLET (FP) PO SCH (10:29)
[2020-12-18] MEDS: LISINOPRIL 20 MG TABLET PO SCH (10:29)
[2020-12-18] MEDS: amLODIPine BESYLATE 5 MG TABLET (FP) PO SCH (10:29)
[2020-12-19] MEDS ORDERED: LORazepam 0.5 MG TABLET PO ONE (05:00)
[2020-12-19] MEDS ORDERED: chlordiazePOXIDE HCL 10 MG CAPSULE PO ONE (05:00)
== END 2020-12-18 12:28 | disposition other institution (70) | DRG 775 ==
LOC: YASAS 17:52 → Y6N 19:32
PROVIDERS: ADMIT Allergy & Immunology; ATTEND Allergy & Immunology
PROC: HZ2ZZZZ Detoxification Services for Substance Abuse Treatment (ICD-10-PCS; principal; 2020-12-14)
DX: F10.230 Alcohol dependence with withdrawal, uncomplicated (principal); F10.220 Alcohol dependence with intoxication, uncomplicated; F17.210 Nicotine dependence, cigarettes, uncomplicated; F20.9 Schizophrenia, unspecified; F10.282 Alcohol dependence with alcohol-induced sleep disorder; I10 Essential (primary) hypertension; J44.9 Chronic obstructive pulmonary disease, unspecified; R74.01 Elevation of levels of liver transaminase levels; Z87.828 Personal history of other (healed) physical injury and trauma; Z88.6 Allergy status to analgesic agent; Z91.018 Allergy to other foods
CPT/HCPCS: 36415; 80053; 85027; 86780; C9803; J0735; U0003; U0005

== ENCOUNTER 2021-10-13 10:47 | Inpatient (IN) | payer OTHER ==
[2021-10-13 11:23] VITALS: BMI 20.5
[2021-10-13] MEDS ORDERED: MENTHOL/PHENOL 1 EACH UD MM PRN (18:13)
[2021-10-13] MEDS ORDERED: MAG HYDROX/AL HYDROX/SIMETH 30 ML UNIT-DOSE CUP PO PRN (18:13)
[2021-10-13] MEDS ORDERED: hydrOXYzine PAMOATE 25 MG CAPSULE (FP) PO PRN (18:13)
[2021-10-13] MEDS ORDERED: ONDANSETRON *ODT* 4 MG TABLET SL PRN (18:13)
[2021-10-13] MEDS ORDERED: ACETAMINOPHEN 325 MG TABLET (FP) PO PRN ×2 (18:13)
[2021-10-13] MEDS ORDERED: MAGNESIUM CITRATE 300 ML BOTTLE PO PRN (18:13)
[2021-10-13] MEDS ORDERED: MAGNESIUM HYDROX 2400MG/30ML ORAL SUSPENSION 30 ML CUP PO PRN (18:13)
[2021-10-13] MEDS ORDERED: LOPERAMIDE HCL 2 MG CAPSULE PO PRN (18:13)
[2021-10-13] MEDS ORDERED: chlordiazePOXIDE HCL 25 MG CAPSULE PO PRN (18:15)
[2021-10-13] MEDS ORDERED: METOPROLOL TARTRATE 50 MG TABLET (FP) PO ONE (18:16)
[2021-10-13] MEDS: chlordiazePOXIDE HCL 25 MG CAPSULE PO SCH (22:21)
[2021-10-13] MEDS: MELATONIN 5 MG TABLETS PO PRN (22:21)
[2021-10-13] MEDS: THIAMINE HCL 100 MG TABLET (FP) PO SCH (22:21)
[2021-10-13] MEDS: METHOCARBAMOL 500 MG TABLET PO PRN (22:22)
[2021-10-14] MEDS: chlordiazePOXIDE HCL 25 MG CAPSULE PO SCH ×4 (06:41→22:18)
[2021-10-14] MEDS: PRENATAL VITAMINS W/ FOLIC ACID TABLET (FP) PO SCH (10:04)
[2021-10-14 12:00] LABS: HEMATOCRIT 44.3 % (32.4-45.2); HEMOGLOBIN 14.4 GM/dL (10.7-15.3); MCH 32.4 pg (25.7-33.7); MCHC 32.5 g/dl (32.0-36.0); MEAN CELL VOLUME 99.8 fl (80-96); MEAN PLT VOLUME 9.5 fl (7.5-11.1); PLATELET COUNT 149 10^3/uL (134-434); RBC 4.44 M/mm3 (3.60-5.2); RDW 15.1 % (11.6-15.6); WHITE BLOOD COUNT 3.4 K/mm3 (4.0-10.0)
[2021-10-14 13:54] LABS: ALBUMIN 3.9 g/dl (3.4-5.0); BLOOD UREA NITROGEN 12.8 mg/dL (7-18); CALCIUM 10.6 mg/dL (8.5-10.1)
[2021-10-14 13:58] LABS: CREATININE 0.7 mg/dL (0.55-1.3)
[2021-10-14 14:00] LABS: BILIRUBIN,TOTAL 2.1 mg/dL (0.2-1)
[2021-10-14] MEDS: METHOCARBAMOL 500 MG TABLET PO PRN (18:02)
[2021-10-14] MEDS: THIAMINE HCL 100 MG TABLET (FP) PO SCH (22:18)
[2021-10-14] MEDS: MELATONIN 5 MG TABLETS PO PRN (22:18)
[2021-10-15] MEDS: chlordiazePOXIDE HCL 25 MG CAPSULE PO SCH ×2 (06:47→10:33)
[2021-10-15] MEDS: PRENATAL VITAMINS W/ FOLIC ACID TABLET (FP) PO SCH (10:34)
[2021-10-15] MEDS ORDERED: LORazepam 1 MG TABLET PO PRN (11:11)
[2021-10-15] MEDS: amLODIPine BESYLATE 5 MG TABLET (FP) PO SCH (17:49)
[2021-10-15] MEDS: LORazepam 2 MG TABLET PO SCH ×2 (17:49→23:26)
[2021-10-15] MEDS: THIAMINE HCL 100 MG TABLET (FP) PO SCH (23:26)
[2021-10-15] MEDS: MELATONIN 5 MG TABLETS PO PRN (23:26)
[2021-10-16] MEDS ORDERED: chlordiazePOXIDE HCL 10 MG CAPSULE PO PRN
[2021-10-16] MEDS ORDERED: chlordiazePOXIDE HCL 10 MG CAPSULE PO SCH (05:00)
[2021-10-16] MEDS: LORazepam 1 MG TABLET PO SCH ×4 (06:47→22:12)
[2021-10-16] MEDS: PRENATAL VITAMINS W/ FOLIC ACID TABLET (FP) PO SCH (10:34)
[2021-10-16] MEDS: amLODIPine BESYLATE 5 MG TABLET (FP) PO SCH (10:34)
[2021-10-16 14:16] LABS: CALCIUM 10.9 mg/dL (8.5-10.1)
[2021-10-16 14:17] LABS: ALBUMIN 3.6 g/dl (3.4-5.0); BLOOD UREA NITROGEN 11.8 mg/dL (7-18)
[2021-10-16 14:20] LABS: CREATININE 0.7 mg/dL (0.55-1.3)
[2021-10-16 14:22] LABS: BILIRUBIN,TOTAL 1.1 mg/dL (0.2-1); TOT PROT 6.8 g/dl (6.4-8.2)
[2021-10-16] MEDS: METHOCARBAMOL 500 MG TABLET PO PRN (17:57)
[2021-10-16] MEDS: MELATONIN 5 MG TABLETS PO PRN (22:12)
[2021-10-16] MEDS: THIAMINE HCL 100 MG TABLET (FP) PO SCH (22:12)
[2021-10-17] MEDS ORDERED: chlordiazePOXIDE HCL 10 MG CAPSULE PO SCH (05:00)
[2021-10-17] MEDS: LORazepam 0.5 MG TABLET PO SCH ×4 (06:28→22:13)
[2021-10-17] MEDS: PRENATAL VITAMINS W/ FOLIC ACID TABLET (FP) PO SCH (10:42)
[2021-10-17] MEDS: amLODIPine BESYLATE 5 MG TABLET (FP) PO SCH (10:42)
[2021-10-17] MEDS: MELATONIN 5 MG TABLETS PO PRN (22:12)
[2021-10-17] MEDS: METHOCARBAMOL 500 MG TABLET PO PRN (22:12)
[2021-10-17] MEDS: THIAMINE HCL 100 MG TABLET (FP) PO SCH (22:12)
[2021-10-18] MEDS ORDERED: LORazepam 0.5 MG TABLET PO PRN
[2021-10-18] MEDS ORDERED: LORazepam 0.5 MG TABLET PO ONE (05:00)
[2021-10-18] MEDS ORDERED: chlordiazePOXIDE HCL 10 MG CAPSULE PO ONE (05:00)
[2021-10-18 08:58] VITALS: BP 148/99; PULSE 105; TEMP 97.1
== END 2021-10-18 10:53 | disposition home or self-care (01) | DRG 775 ==
LOC: YASAS 10:47 → Y3N 20:02
PROVIDERS: ADMIT Allergy & Immunology; ATTEND Allergy & Immunology
PROC: HZ2ZZZZ Detoxification Services for Substance Abuse Treatment (ICD-10-PCS; principal; 2021-10-13)
DX: F10.230 Alcohol dependence with withdrawal, uncomplicated (principal); F17.213 Nicotine dependence, cigarettes, with withdrawal; F20.9 Schizophrenia, unspecified; F41.9 Anxiety disorder, unspecified; G47.00 Insomnia, unspecified; I10 Essential (primary) hypertension; J43.9 Emphysema, unspecified; D72.819 Decreased white blood cell count, unspecified; R94.31 Abnormal electrocardiogram [ECG] [EKG]; R73.9 Hyperglycemia, unspecified; R74.01 Elevation of levels of liver transaminase levels; R29.6 Repeated falls; Z88.8 Allergy status to other drugs, medicaments and biological substances; Z91.018 Allergy to other foods
CPT/HCPCS: 36415; 80053; 82962; 85027; 86780; 87811; C9803; U0003; U0005

== ENCOUNTER 2021-10-13 11:51 | Emergency (ER) | payer OTHER ==
[2021-10-13 12:13] VITALS: TEMP 98.2; BMI 20.5
[2021-10-13] MEDS ORDERED: FAMOTIDINE 20 MG/50 ML IVPB 20 MG/50 ML MG IVPB ONE ×3 (12:48→13:02)
[2021-10-13 12:57] LABS: BASO % 1.5 % (0-2.0); EOS % 1.3 % (0-4.5); HEMATOCRIT 50.2 % (32.4-45.2); HEMOGLOBIN 16.3 GM/dL (10.7-15.3); LYMPH % 44.9 % (8-40); MCH 32.2 pg (25.7-33.7); MCHC 32.4 g/dl (32.0-36.0); MEAN CELL VOLUME 99.4 fl (80-96); MEAN PLT VOLUME 8.8 fl (7.5-11.1); MONO % 6.2 % (3.8-10.2); NEUT % 46.1 % (42.8-82.8); PLATELET COUNT 217 10^3/uL (134-434); RBC 5.06 M/mm3 (3.60-5.2); RDW 16.1 % (11.6-15.6); WHITE BLOOD COUNT 3.7 K/mm3 (4.0-10.0)
[2021-10-13] MEDS ORDERED: MAG HYDROX/AL HYDROX/SIMETH 30 ML UNIT-DOSE CUP PO ONE (13:02)
[2021-10-13] MEDS ORDERED: LIDOCAINE VISCOUS 2% ORAL/TOP 15 ML UNIT-DOSE CUP MM ONE (13:03)
[2021-10-13] MEDS ORDERED: MAG HYDROX/AL HYDROX/SIMETH 30 ML UNIT-DOSE CUP ONE (13:11)
[2021-10-13] MEDS ORDERED: LIDOCAINE VISCOUS 2% ORAL/TOP 15 ML UNIT-DOSE CUP ONE (13:11)
[2021-10-13] MEDS ORDERED: LORazepam 2 MG/ML SDV VIAL IVPUSH ONE (14:22)
[2021-10-13 15:20] LABS: CALCIUM 9.6 mg/dL (8.5-10.1)
[2021-10-13 15:22] LABS: BLOOD UREA NITROGEN 10.1 mg/dL (7-18)
[2021-10-13 15:24] LABS: CREATININE 0.6 mg/dL (0.55-1.3)
[2021-10-13 15:26] LABS: BILIRUBIN,TOTAL 1.3 mg/dL (0.2-1); TOT PROT 7.4 g/dl (6.4-8.2)
[2021-10-13 15:46] VITALS: BP 149/91; PULSE 88
== END 2021-10-13 16:55 | disposition home or self-care (01) ==
LOC: JER 11:51
PROC: 3E033GC Introduction of Other Therapeutic Substance into Peripheral Vein, Percutaneous Approach (ICD-10-PCS; principal; 2021-10-13)
PROC: 3E033GC Introduction of Other Therapeutic Substance into Peripheral Vein, Percutaneous Approach (ICD-10-PCS; 2021-10-13)
DX: R07.9 Chest pain, unspecified (principal)
CPT/HCPCS: 36415; 71046-TC-FY; 80053; 84484; 85025; 93005; 93010; 99285-25